=== PATIENT | male | born 1985 | race Caucasian/White ===

== ENCOUNTER 2016-12-05 12:40 | Emergency (ER) | payer BC ==
--- NOTE | 2016-12-05 13:14 | EDM.PDOC ---
ED HPI GENERAL MEDICAL PROBLEM - General Chief Complaint: Laceration Stated Complaint: FINGER CUT TO LEFT SIDE Time Seen by Provider: 12/05/16 13:11 Source of Information: Reports: Patient History Limitations: Reports: No Limitations - History of Present Illness INITIAL COMMENTS - FREE TEXT/NARRATIVE: HISTORY AND PHYSICAL: History of present illness: [Patient comes the emergency room for evaluation of a laceration to his left index finger. Was sharpening his knife, when it slipped, cutting into his finger. Bled at the time, but quickly resolved. Last tetanus was within the last 5-10 years] Review of systems: As per history of present illness and below otherwise all systems reviewed and negative. Past medical history: As per history of present illness and as reviewed below otherwise noncontributory. Surgical history: As per history of present illness and as reviewed below otherwise noncontributory. Social history: No reported history of drug or alcohol abuse. Family history: As per history of present illness and as reviewed below otherwise noncontributory. Physical exam: HEENT: Atraumatic, normocephalic. Extremities: 1cm linear laceration to soft tissue of palmar surface of Left index finger, between PIP and MIP joint. Laceration appears superficial and does not extend into subcutaneous tissue. No bleeding noted at time of exam. Neurovascular unremarkable. Hand is otherwise atraumatic. Neuro: Awake, alert, oriented. Motor and sensory unremarkable throughout. Exam nonfocal. Impression: [Laceration left index finger] Plan: [Wound is soaked in Hibiclens and a copious amount of normal saline. No foreign bodies appreciated. See procedure note. Triple antibiotic ointment and Band-Aid are applied without difficulty. No sutures or wound adhesive is needed. Wound care instructions are given. All his questions are answered and concerns are addressed.] Definitive disposition and diagnosis as appropriate pending reevaluation and review of above. left index finger Pain Score (Numeric/FACES): 3 - Related Data Allergies Allergy/AdvReac Type Severity Reaction Status Date / Time No Known Allergies Allergy Verified 12/05/16 12:52 Home Meds: Home Meds . [No Known Home Meds] 12/19/13 [History] Past Medical History - Past Health History Medical/Surgical History: Denies Medical/Surgical History Social & Family History - Family History Family Medical History: Noncontributory - Tobacco Use Smoking Status *Q: Never Smoker - Caffeine Use Caffeine Use: Reports: Coffee Caffeine Use Comment: 1 cup daily - Recreational Drug Use Recreational Drug Use: No ED ROS GENERAL - Review of Systems Review Of Systems: ROS reveals no pertinent complaints other than HPI. ED EXAM, SKIN/RASH Exam: See Below ED SKIN PROCEDURES - Laceration/Wound Repair Left Proximal Finger Lac/Wound length In cm: 1 Appearance: Superficial, Linear, Clean Distal NVT: Neuro & Vascular Intact Skin Prep: Chlorhexidine (Hibiciens), Saline Exploration/Debridement/Repair: Wound Explored, in a Bloodless Field Sterile Dressing Applied: Nurse Tetanus Status Addressed: Yes Complications: No Course - Vital Signs Last Recorded V/S: Last Vital Signs Temp 97 F 12/05/16 12:52 Pulse 70 12/05/16 13:57 Resp 16 12/05/16 13:57 BP 145/78 H 12/05/16 13:57 Pulse Ox 98 12/05/16 13:57 - Orders/Labs/Meds Orders: Active Orders 24 hr Category Date Time Status Vaccines to be Administered [RC] PER UNIT ROUTINE Care 12/05/16 13:27 Active Meds: Medications Discontinued Medications Generic Name Dose Route Start Last Admin Trade Name Yaoq PRN Reason Stop Dose Admin Bacitracin 1 dose 12/05/16 13:34 12/05/16 13:43 Bacitracin Oint 1 Gm TOP 12/05/16 13:35 1 dose ONETIME ONE Administration Diphtheria/Tetanus/Acell Pertussis 0.5 ml 12/05/16 13:27 12/05/16 13:40 Adacel IM 12/05/16 13:28 0.5 ml .ONCE ONE Administration Neomycin/Polymyxin/Bacitracin 1 gm 12/05/16 13:27 12/05/16 13:40 Triple Antibiotic Oint TOP 12/05/16 13:28 Not Given ONETIME ONE Departure - Departure Time of Disposition: 13:30 Disposition: Home, Self-Care 01 Condition: Good Clinical Impression: Laceration - Discharge Information Instructions: Laceration Care, Adult, [id number] Referrals: PCP,None [Primary Care Provider] - Forms: ED Department Discharge Additional Instructions: The following information is given to patients seen in the emergency department who are being discharged to home. This information is to outline your options for follow-up care. We provide all patients seen in our emergency department with a follow-up referral. The need for follow-up, as well as the timing and circumstances, are variable depending upon the specifics of your emergency department visit. If you don't have a primary care physician on staff, we will provide you with a referral. We always advise you to contact your personal physician following an emergency department visit to inform them of the circumstance of the visit and for follow-up with them and/or the need for any referrals to a consulting specialist. The emergency department will also refer you to a specialist when appropriate. This referral assures that you have the opportunity for follow-up care with a specialist. All of these measure are taken in an effort to provide you with optimal care, which includes your follow-up. Under all circumstances we always encourage you to contact your private physician who remains a resource for coordinating your care. When calling for follow-up care, please make the office aware that this follow-up is from your recent emergency room visit. If for any reason you are refused follow-up, please contact the [facility] emergency department at and asked to speak to the emergency department charge nurse. [facility] [address] [place] [id number] Follow-up with PCP in 48-72 hours. Keep wound clean and dry. May shower normally tomorrow. Apply triple antibiotic ointment and fresh Band-Aid twice daily. Return to ER as needed as discussed. - My Orders Last 24 Hours: My Active Orders 12/05/16 13:27 Vaccines to be Administered [RC] PER UNIT ROUTINE - Assessment/Plan Last 24 Hours: My Active Orders 12/05/16 13:27 Vaccines to be Administered [RC] PER UNIT ROUTINE
[2016-12-05] MEDS ORDERED: Diphtheria,Pertussis(Acell),Tetanus Vaccine 0.5 ML Syringe IM ONE (13:27)
[2016-12-05] MEDS ORDERED: Bacitracin/Neomycin/Polymyxin B Oint 28.4 GM Tube TOP ONE (13:27)
[2016-12-05] MEDS ORDERED: Bacitracin Oint 1 GM U/D Packet TOP ONE (13:34)
[2016-12-05 14:08] VITALS: BP 145/78
== END 2016-12-05 13:57 | disposition home or self-care (01) ==
LOC: MW.ED 12:40
DX: S61.211A Laceration without foreign body of left index finger without damage to nail, initial encounter (principal); Z23 Encounter for immunization; W26.0XXA Contact with knife, initial encounter
CPT/HCPCS: 90471; 90715; 99282; 99282-25

== ENCOUNTER 2023-07-12 09:26 | Emergency (ER) | payer BC ==
[2023-07-12] MEDS ORDERED: Sodium Chloride 0.9% 2.5 ML Syringe FLUSH PRN (09:34)
[2023-07-12] MEDS ORDERED: Sodium Chloride 0.9% 10 ML Syringe FLUSH PRN (09:34)
[2023-07-12 09:42] LABS: BASOPHILS ABSOLUTE AUTO 0.03 K/uL (0.00-0.20); BASOPHILS PERCENT AUTO 0.2 % (0.0-1.0); EOSINOPHILS ABSOLUTE AUTO 0.07 K/uL (0.00-0.45); EOSINOPHILS PERCENT AUTO 0.6 % (0.0-6.0); HEMATOCRIT 44.3 % (42.0-52.0); HEMOGLOBIN 15.6 g/dL (14.0-18.0); IMMATURE GRAN ABSOLUTE AUTO 0.06 K/uL (0.00-0.05); IMMATURE GRAN PERCENT AUTO 0.5 % (0.0-0.4); LYMPHOCYTES ABSOLUTE AUTO 1.58 K/uL (1.00-4.80); LYMPHOCYTES PERCENT AUTO 12.9 % (24.0-44.0); MEAN CORPUSCULAR HEMOGLOBIN 29.3 pg (28.0-32.0); MEAN CORPUSCULAR HGB CONC 35.2 g/dL (32.0-36.0); MEAN CORPUSCULAR VOLUME 83.1 fL (83.0-99.0); MEAN PLATELET VOLUME 8.8 fL (9.4-12.4); MONOCYTES ABSOLUTE AUTO 1.15 K/uL (0.00-0.80); MONOCYTES PERCENT AUTO 9.4 % (0.0-8.0); NEUTROPHILS PERCENT AUTO 76.4 % (41.0-71.0); PLATELET COUNT,PLT 451 K/uL (150-400); RED BLOOD CELL COUNT 5.33 M/uL (4.52-5.90); WHITE BLOOD CELL COUNT,WBC 12.29 K/uL (3.9-11.3)
[2023-07-12] MEDS ORDERED: Iopamidol 755 MG/ML 500 ML Multipack Bottle IVPUSH STA (09:43)
[2023-07-12] MEDS: hydrALAZINE 20 MG/ML SDV IVPUSH PRN ×2 (09:51→10:09)
[2023-07-12 10:01] LABS: INR 1.05 (0.86-1.11)
[2023-07-12 10:09] LABS: A/G RATIO 1.1 (0.9-1.6); ALANINE AMINOTRANSFERASE,ALT 38 IU/L (14-63); ALBUMIN 4.4 g/dL (3.4-5.0); ALKALINE PHOSPHATASE 68 U/L (46-116); ASPARTATE AMNIOTRANSFERASE,AST 19 IU/L (15-37); BILIRUBIN TOTAL 0.5 mg/dL (0.2-1.0); BLOOD UREA NITROGEN,BUN 11 mg/dL (7.0-18.0); CALCIUM 9.2 mg/dL (8.5-10.1); CARBON DIOXIDE,CO2 26.2 mmol/L (21.0-32.0); CHLORIDE,CL 101 mmol/L (98-107); EST CRCL DRUG DOSING (CG) 118.53 mL/min; GLUCOSE RANDOM 123 mg/dL (74-106); PROTEIN TOTAL,TP 8.4 g/dL (6.4-8.2); SODIUM,NA 138 mmol/L (136-148)
[2023-07-12 10:15] LABS: ESTIMATED GFR 98 mL/min (>60); ETHANOL BLOOD MEDICAL < 3.0 mg/dL
[2023-07-12] MEDS ORDERED: Heparin Sodium/0.45% NaCl 500 ML IV SCH (10:30)
[2023-07-12] MEDS ORDERED: Heparin Sodium 5,000 Units/ML Vial IVPUSH ONE (10:44)
[2023-07-12] MEDS ORDERED: NORMAL SALINE IV SCH (10:45)
[2023-07-12] MEDS ORDERED: NICARDIPINE IV SCH (10:45)
[2023-07-12 12:28] VITALS: BP 177/100; PULSE 98
== END 2023-07-12 12:45 | disposition other institution (70) ==
LOC: MW.ED 09:26
DX: I63.9 Cerebral infarction, unspecified (principal); I77.71 Dissection of carotid artery
CPT/HCPCS: 36415; 70450; 70496; 70498; 71045; 80053; 80307; 84484; 85025; 85610; 85730; 93005; 96365; 96366; 96375; 99285; J0360; J1644; J3490; Q9967; 93010